=== PATIENT | male | born 1990 | race Caucasian/White ===

== ENCOUNTER 2019-08-20 22:12 | Emergency (ER) | payer SELFPAY ==
[2019-08-20 22:44] LABS: ABSOLUTE BASOPHILS # (AUTO) 0.1 10^3/uL (0.0-0.2); ABSOLUTE EOSINOPHILS # (AUTO) 0.4 10^3/uL (0.0-0.6); ABSOLUTE LYMPHOCYTES (AUTO) 3.1 10^3/uL (0.5-4.7); ABSOLUTE MONOCYTES (AUTO) 0.7 10^3/uL (0.1-1.4); ABSOLUTE NEUT (AUTO) 11.6 10^3/uL (1.7-8.2); BASOPHILS % (AUTO) 0.5 % (0-2); EOSINOPHILS % (AUTO) 2.5 % (0-6); HEMATOCRIT 53.7 % (37.9-51.0); HEMOGLOBIN 18.6 g/dL (13.5-17.0); LYMPHOCYTES % (AUTO) 19.2 % (13-45); MEAN CORPUSCULAR HEMOGLOBIN 30.3 pg (27.0-33.4); MEAN CORPUSCULAR HGB CONC 34.7 g/dL (32.0-36.0); MEAN CORPUSCULAR VOLUME 87 fl (80-97); MONOCYTES % (AUTO) 4.6 % (3-13); PLATELET COUNT 257 10^3/uL (150-450); RED BLOOD COUNT 6.15 10^6/uL (4.35-5.55); RED CELL DISTRIBUTION WIDTH 13.2 % (11.5-14.0); SEGMENTED NEUTROPHILS % (AUTO) 73.2 % (42-78); TOTAL CELLS COUNTED % (AUTO) 100 %; WHITE BLOOD COUNT 15.9 10^3/uL (4.0-10.5)
[2019-08-20 23:09] LABS: ALBUMIN 5.1 g/dL (3.5-5.0); ALKALINE PHOSPHATASE 79 U/L (38-126); ANION GAP 12 (5-19); ASPARTATE AMINO TRANSFERASE 36 U/L (17-59); BILIRUBIN,DIRECT 0.1 mg/dL (0.0-0.4); BILIRUBIN,TOTAL 0.8 mg/dL (0.2-1.3); BLOOD UREA NITROGEN 8 mg/dL (7-20); CALCIUM 10.2 mg/dL (8.4-10.2); CARBON DIOXIDE 29 mmol/L (22-30); CHLORIDE 99 mmol/L (98-107); CREATINE KINASE 131 U/L (55-170); GLUCOSE 129 mg/dL (75-110); POTASSIUM 3.7 mmol/L (3.6-5.0); TOTAL PROTEIN 8.2 g/dL (6.3-8.2)
--- NOTE | 2019-08-20 23:21 | RADIOLOGY REPORT (SQ) ---
EXAM DESCRIPTION: XR CHEST 2 VIEWS COMPLETED DATE/TME: 08/20/2019 00:00 CLINICAL HISTORY: 29 years, Male, chest pain COMPARISON: None. NUMBER OF VIEWS: 2 TECHNIQUE: 2 views of the chest LIMITATIONS: None. FINDINGS: The heart size is normal. Lungs are clear. No pneumothorax IMPRESSION: Negative chest copyright 2010 [employer]- All Rights Reserved
--- NOTE | 2019-08-20 23:27 | ER Document Report ---
ED General - General Chief Complaint: Chest Pain Stated Complaint: SHORTNESS OF BREATH/CHEST PAIN/NECK SWELLING Time Seen by Provider: 08/20/19 22:53 Mode of Arrival: Ambulatory Information source: Patient Notes: Patient is an otherwise healthy 29-year-old male presenting to the emergency department with chief complaint of sores on his groin and on his face and also chest pain with shortness of breath. Patient reports he has been suffering a lot from anxiety and depression lately due to issues with money and work. He denies any cardiac history. He states the chest pain has been intermittent over the last week and just feels like a fluttering and then he starts hyperventilating. Patient reports the different sores to his face and groin have also been intermittent over the last 10 years. TRAVEL OUTSIDE OF THE [place] IN LAST 30 DAYS: No - Related Data Allergies/Adverse Reactions: No Known Allergies Allergy (Unverified 08/20/19 22:19) Home Medications: none Past Medical History - General Information source: Patient - Social History Smoking Status: Current Every Day Smoker Chew tobacco use (# tins/day): No Frequency of alcohol use: Occasional Drug Abuse: None Family History: Reviewed & Not Pertinent Patient has suicidal ideation: No Patient has homicidal ideation: No - Medical History Medical History: Negative Surgical Hx: Negative - Immunizations Immunizations up to date: Yes Review of Systems - Review of Systems Constitutional: No symptoms reported EENT: No symptoms reported Cardiovascular: See HPI Respiratory: No symptoms reported Gastrointestinal: No symptoms reported Genitourinary: No symptoms reported Male Genitourinary: No symptoms reported Musculoskeletal: No symptoms reported Skin: See HPI Hematologic/Lymphatic: No symptoms reported Neurological/Psychological: No symptoms reported Physical Exam - Vital signs Vitals: Temp Pulse Resp BP Pulse Ox 99.3 F 85 16 153/99 H 99 08/20/19 22:22 08/20/19 22:22 08/20/19 22:22 08/20/19 22:22 08/20/19 22:22 - Notes Notes: PHYSICAL EXAMINATION: GENERAL: Well-appearing, well-nourished and in no acute distress. HEAD: Atraumatic, normocephalic. EYES: Pupils equal round and reactive to light, extraocular movements intact, sclera anicteric, conjunctiva are normal. ENT: Nares patent, oropharynx clear without exudates. Moist mucous membranes. NECK: Normal range of motion, supple without lymphadenopathy LUNGS: Breath sounds clear to auscultation bilaterally and equal. No wheezes rales or rhonchi. HEART: Regular rate and rhythm without murmurs ABDOMEN: Soft, nontender, nondistended abdomen. No guarding, no rebound. No masses appreciated. Musculoskeletal: Normal range of motion, no pitting or edema. No cyanosis. NEUROLOGICAL: Cranial nerves grossly intact. Normal speech, normal gait. Normal sensory, motor exams PSYCH: Normal mood, normal affect. SKIN: Scabbed over sores noted to patient's groin area and also along his chin. Course - Re-evaluation Re-evalutation: Chest X-Ray 08/20/19 00:00 IMPRESSION: Negative chest copyright 2011 [employer]- All Rights Reserved Laboratory 08/20/19 08/20/19 08/20/19 22:30 22:30 22:30 WBC 15.9 H RBC 6.15 H Hgb 18.6 H Hct 53.7 H MCV 87 MCH 30.3 MCHC 34.7 RDW 13.2 Plt Count 257 Lymph % (Auto) 19.2 Rabun % (Auto) 4.6 Eos % (Auto) 2.5 Baso % (Auto) 0.5 Absolute Neuts (auto) 11.6 H Absolute Lymphs (auto) 3.1 Absolute Monos (auto) 0.7 Absolute Eos (auto) 0.4 Absolute Basos (auto) 0.1 Seg Neutrophils % 73.2 Sodium 139.8 Potassium 3.7 Chloride 99 Carbon Dioxide 29 Anion Gap 12 BUN 8 Creatinine 0.91 Est GFR ( Amer) > 60 Est GFR (MDRD) Non-Af > 60 Glucose 129 H Calcium 10.2 Total Bilirubin 0.8 Direct Bilirubin 0.1 Neonat Total Bilirubin Not Reportable Neonat Direct Bilirubin Not Reportable Neonat Indirect Bili Not Reportable AST 36 ALT 25 Alkaline Phosphatase 79 Creatine Kinase 131 CK-MB (CK-2) 1.65 Troponin I < 0.012 Total Protein 8.2 Albumin 5.1 H EKG shows a sinus rhythm, no ST segment elevations or depressions to suggest ischemia and a normal axis. His chest x-ray was unremarkable. His lab work-up today was unremarkable other than a nonspecific elevated white blood count however patient has not been sick lately. Patient symptoms are most consistent with acute anxiety. Patient requesting to be started on medication for this. Will give patient prescription for buspirone and have patient follow-up with outpatient resources which were also provided. - Vital Signs Vital signs: Temp Pulse Resp BP Pulse Ox 98.5 F 85 18 124/89 H 96 08/21/19 00:28 08/20/19 22:22 08/21/19 00:27 08/21/19 00:27 08/21/19 00:27 - Laboratory Result Diagrams: 08/20/19 22:30 08/20/19 22:30 Laboratory results interpreted by me: 08/20/19 08/20/19 22:30 22:30 WBC 15.9 H RBC 6.15 H Hgb 18.6 H Hct 53.7 H Absolute Neuts (auto) 11.6 H Glucose 129 H Albumin 5.1 H Discharge - Discharge Clinical Impression: Skin eruption, Anxiety Condition: Stable Disposition: HOME, SELF-CARE Additional Instructions: Please take the antibiotics as prescribed. Please try to have the antibiotics filled at the [facility] they may have this available to you at 0 cost. Use the antibiotic ointment to your face twice daily. Do not pick at your face. Start taking the antidepressant as discussed. Please follow-up with the resources that I have given you. Return to the emergency department for any new or worsening symptoms. Prescriptions: Sulfamethoxazole/Trimethoprim [Bactrim Ds Tablet] 1 each PO BID #28 tablet Buspirone HCl [Buspar 10 mg Tablet] 10 mg PO DAILY #30 tablet
[2019-08-20 23:46] LABS: CREATINE KINASE MB 1.65 ng/mL (<4.55); TROPONIN I < 0.012 ng/mL
[2019-08-21 00:28] VITALS: BP 124/89
[2019-08-21] MEDS ORDERED: MUPIROCIN 2% OINTMENT 22 GM TP ONE (00:28)
--- NOTE | 2019-08-21 00:46 | EKG REPORT ---
SEVERITY:- ABNORMAL ECG - SINUS RHYTHM NONSPECIFIC INTRAVENTRICULAR CONDUCTION DELAY : Confirmed by: Sonal Aaron MD 21-Aug-2019 00:46:10
== END 2019-08-21 00:46 | disposition home or self-care (01) ==
LOC: ER 22:12
DX: R21 Rash and other nonspecific skin eruption (principal); F41.9 Anxiety disorder, unspecified; R07.9 Chest pain, unspecified; R06.02 Shortness of breath; R22.1 Localized swelling, mass and lump, neck; F32.9 Major depressive disorder, single episode, unspecified; F17.200 Nicotine dependence, unspecified, uncomplicated
CPT/HCPCS: 93005; 99285; 36415; 82553; 82550; 85025; 80053; 84484; 71046; 93010; J3490

== ENCOUNTER 2019-10-15 16:41 | Emergency (ER) | payer SELFPAY ==
[2019-10-15] MEDS ORDERED: NORMAL SALINE 1000 ML 1,000 ML IV ONE ×2 (17:56→17:58)
[2019-10-15] MEDS ORDERED: ONDANSETRON HCL INJ/PF 4 MG/2 ML SDV IV ONE (17:58)
--- NOTE | 2019-10-15 18:18 | ER Document Report ---
ED Medical Screen (RME) - General Chief Complaint: Flu Symptoms Stated Complaint: SORE THROAT/FEVER/BODY ACHES Time Seen by Provider: 10/15/19 17:50 Mode of Arrival: Ambulatory Information source: Patient Notes: Patient presents to the ED with complaint of flu-like symptoms that he states began one week [employer]. Patient reports feeling febrile at home but is unable to check temperature. Patient reports generalized body aches, fatigue, diarhhea, nausea without vomitting, headache. Patient is able to tolerate po food/fluids, but has decreased appetite. Patient reports feeling sob at this time, 96% on RA at triage. Even and unlabored respirations, nad noted. Patient reports cough that is non productive and reports pain that has begun with coughing and deep breaths. Patient tearful in triage. Patient reports reduced urine output. Patient is AOx4, respirations e/u, able to speak in clear and complete sentences, nad noted. Ambulatory with even and steady gait. Denies signifigant medical/surgical hx Otherwise healthy 29-year-old male presenting with flulike symptoms that he reports began 1 week ago. He reports feeling cold chills at home, generalized body aches, fatigue, nausea without vomiting, generalized headache and he states persistent diarrhea [id number]. He states he has been trying to drink liquids but he is unable to keep anything in him. He states he feels very short of breath and has no energy. Exam: Patient afebrile in triage but tachycardic. Lung sounds clear and equal bilaterally. I have greeted and performed a rapid initial assessment of this patient. A comprehensive ED assessment and evaluation of the patient, analysis of test results and completion of the medical decision making process will be conducted by additional ED providers. I have specifically instructed the patient or family members with the patient to immediately return to any nursing staff should anything change in the patient's condition or with their chief complaint. TRAVEL OUTSIDE OF THE [place] IN LAST 30 DAYS: No - Related Data Allergies/Adverse Reactions: No Known Allergies Allergy (Unverified 08/20/19 22:19) Past Medical History - Immunizations Immunizations up to date: Yes Physical Exam - Vital signs Vitals: Temp Pulse Resp BP Pulse Ox 99.1 F 119 H 20 126/78 H 96 10/15/19 17:28 10/15/19 17:28 10/15/19 17:28 10/15/19 17:28 10/15/19 17:28 Course - Vital Signs Vital signs: Temp Pulse Resp BP Pulse Ox 99.1 F 119 H 20 126/78 H 96 10/15/19 17:28 10/15/19 17:28 10/15/19 17:28 10/15/19 17:28 10/15/19 17:28
[2019-10-15 18:49] LABS: ABSOLUTE LYMPHOCYTES (AUTO) 1.1 10^3/uL (0.5-4.7); ABSOLUTE MONOCYTES (AUTO) 0.9 10^3/uL (0.1-1.4); ABSOLUTE NEUT (AUTO) 8.7 10^3/uL (1.7-8.2); BASOPHILS % (AUTO) 0.4 % (0-2); HEMATOCRIT 46.7 % (37.9-51.0); HEMOGLOBIN 16.6 g/dL (13.5-17.0); LYMPHOCYTES % (AUTO) 10.5 % (13-45); MEAN CORPUSCULAR HEMOGLOBIN 30.3 pg (27.0-33.4); MEAN CORPUSCULAR HGB CONC 35.5 g/dL (32.0-36.0); MEAN CORPUSCULAR VOLUME 85 fl (80-97); MONOCYTES % (AUTO) 8.1 % (3-13); PLATELET COUNT 129 10^3/uL (150-450); RED BLOOD COUNT 5.47 10^6/uL (4.35-5.55); RED CELL DISTRIBUTION WIDTH 12.7 % (11.5-14.0); TOTAL CELLS COUNTED % (AUTO) 100 %; WHITE BLOOD COUNT 10.8 10^3/uL (4.0-10.5)
[2019-10-15 19:00] LABS: ALBUMIN 4.4 g/dL (3.5-5.0); ALKALINE PHOSPHATASE 66 U/L (38-126); ANION GAP 10 (5-19); ASPARTATE AMINO TRANSFERASE 32 U/L (17-59); BILIRUBIN,DIRECT 0.2 mg/dL (0.0-0.4); BILIRUBIN,TOTAL 0.5 mg/dL (0.2-1.3); BLOOD UREA NITROGEN 8 mg/dL (7-20); CALCIUM 9.1 mg/dL (8.4-10.2); CARBON DIOXIDE 24 mmol/L (22-30); CHLORIDE 102 mmol/L (98-107); GLUCOSE 85 mg/dL (75-110); TOTAL PROTEIN 7.3 g/dL (6.3-8.2)
[2019-10-15 19:18] LABS: A TYPE INFLUENZA AG NEGATIVE (NEGATIVE); B INFLUENZA AG NEGATIVE (NEGATIVE)
[2019-10-15] MEDS ORDERED: KETOROLAC TROMETHAMINE INJ/PF 30 MG/1 ML SDV IV ONE (19:41)
[2019-10-15] MEDS ORDERED: BENZONATATE 100 MG CAPSULE PO ONE (19:41)
--- NOTE | 2019-10-15 19:42 | EKG REPORT ---
SEVERITY:- NORMAL ECG - SINUS RHYTHM : Confirmed by: Jem Lamb 15-Oct-2019 19:41:59
--- NOTE | 2019-10-15 19:47 | ER Document Report ---
ED General - General Chief Complaint: Flu Symptoms Stated Complaint: SORE THROAT/FEVER/BODY ACHES Time Seen by Provider: 10/15/19 17:50 Mode of Arrival: Ambulatory Information source: Patient TRAVEL OUTSIDE OF THE [place] IN LAST 30 DAYS: No - HPI Onset: Last week Onset/Duration: Gradual Severity: Moderate Pain Level: 3 Associated symptoms: Body/muscle aches, Chest pain, Chills, Productive cough, Diarrhea, Headache, Nausea, Weakness Exacerbated by: Denies Relieved by: Other - Tylenol and Motrin Similar symptoms previously: No Recently seen / treated by doctor: No Notes: 29 year old male with no known PMH here for 1 week of flu like symptoms: chills, sweats, nausea, sore throat, headache, cough, body aches. The patient says he has been around 2 people who tested positive for the Flu recently. The patient says he has been coughing so hard his chest now hurts a fair amount. The patient was given Fluids and Zofran prior to me seeing the patient and he said he felt somewhat better. - Related Data Allergies/Adverse Reactions: No Known Allergies Allergy (Unverified 08/20/19 22:19) Past Medical History - General Information source: Patient - Social History Smoking Status: Current Every Day Smoker Frequency of alcohol use: Occasional Drug Abuse: None Lives with: Alone Family History: Reviewed & Not Pertinent Patient has suicidal ideation: No Patient has homicidal ideation: No - Past Medical History Cardiac Medical History: Reports: None Pulmonary Medical History: Reports: None EENT Medical History: Reports: None Neurological Medical History: Reports: None Endocrine Medical History: Reports: None Renal/ Medical History: Reports: None Malignancy Medical History: Reports None GI Medical History: Reports: None Musculoskeletal Medical History: Reports None Skin Medical History: Reports None Psychiatric Medical History: Reports: None Traumatic Medical History: Reports: None Infectious Medical History: Reports: None Past Surgical History: Reports: None - Immunizations Immunizations up to date: Yes Review of Systems - Review of Systems Constitutional: Chills, Diaphoresis, Weakness EENT: Throat pain Cardiovascular: Chest pain Respiratory: Cough, Short of breath, Wheezing Gastrointestinal: Diarrhea, Nausea, Poor appetite Genitourinary: No symptoms reported Male Genitourinary: No symptoms reported Musculoskeletal: Muscle pain Skin: No symptoms reported Hematologic/Lymphatic: No symptoms reported Neurological/Psychological: Headaches Physical Exam - Vital signs Vitals: Temp Pulse Resp BP Pulse Ox 99.1 F 119 H 20 126/78 H 96 10/15/19 17:28 10/15/19 17:28 10/15/19 17:28 10/15/19 17:28 10/15/19 17:28 Course - Re-evaluation Re-evalutation: 10/15/19 20:59 The patient seems to have a right sided pneumonia on Xray on my read. Will treat patient with Levaquin and have patient follow up with a PCP to ensure resolution of symptoms nad Xray findings. Will also prescribe Albuterol, Naproxen, and Zofran for symptom relief. Patient felt better in the ER after treatment with fluids, Toradol, Zofran, Tessalon Perles. - Vital Signs Vital signs: Temp Pulse Resp BP Pulse Ox 99.1 F 119 H 20 126/78 H 96 10/15/19 17:28 10/15/19 17:28 10/15/19 17:28 10/15/19 17:28 10/15/19 17:28 - Laboratory Result Diagrams: 10/15/19 18:28 10/15/19 18:28 Laboratory results interpreted by me: 10/15/19 10/15/19 18:28 18:28 WBC 10.8 H Plt Count 129 L Lymph % (Auto) 10.5 L Absolute Neuts (auto) 8.7 H Seg Neutrophils % 81.0 H Sodium 136.2 L Discharge - Discharge Clinical Impression: Pneumonia Qualifiers: Pneumonia type: due to unspecified organism Laterality: right Lung location: unspecified part of lung Qualified Code(s): J18.9 - Pneumonia, unspecified organism Condition: Stable Disposition: HOME, SELF-CARE Additional Instructions: Take Levaquin (antibiotic) as prescribed. Use Zofran as needed for nausea. Use albuterol as needed for wheezing and shortness of breath. Use Naproxen for chest pain. Drink plenty of fluids in the days to come. Follow up with a primary care doctor to ensure resolution of your symptoms and of you abnormal chest xray. Prescriptions: Levofloxacin [Levaquin 750 mg Tablet] 750 mg PO DAILY #5 tablet Naproxen 500 mg PO BID PRN #14 tablet PRN Reason: Albuterol Sulfate [Proair HFA Inhalation Aerosol 8.5 gm MDI] 2 puff IH Q4H PRN #1 mdi PRN Reason:
[2019-10-15] MEDS ORDERED: IPRATROPIUM/ALBUTEROL 0.5-2.5 MG/3 ML AMPUL NEB ONE (19:52)
[2019-10-15] MEDS ORDERED: LEVOFLOXACIN 750 MG TABLET PO ONE (21:04)
--- NOTE | 2019-10-15 21:05 | RADIOLOGY REPORT (SQ) ---
XR CHEST 2 VIEWS CLINICAL STATEMENT: eval for pneumonia. 1 week of cough COMPARISON: 08/20/2019 FINDINGS: Heart is not enlarged. Interval development of right lower lobe airspace disease consistent with pneumonia. No pneumothorax. No pleural effusions. IMPRESSION: Patchy right lower lobe pneumonia.
[2019-10-15] MEDS ORDERED: HYDROCODONE/ACETAMINOPHEN 5-325 MG (6 TAB/ER DISP) PO PRN (21:16)
[2019-10-15] MEDS ORDERED: ONDANSETRON ODT 4 MG TAB (6 TAB/ER DISP) PO PRN (21:16)
[2019-10-15 21:30] VITALS: BP 117/60
== END 2019-10-15 21:33 | disposition home or self-care (01) ==
LOC: ER 16:41
DX: J18.9 Pneumonia, unspecified organism (principal); R53.1 Weakness; R61 Generalized hyperhidrosis; R06.2 Wheezing; R11.0 Nausea; R19.7 Diarrhea, unspecified; F17.200 Nicotine dependence, unspecified, uncomplicated
CPT/HCPCS: 93005; 94640; 99284; 96361; 96374; 96375; 36415; 87070; 87880; 85025; 87077; 80053; 87804; 71046; 93010; J1885; J2405; J7030; J7620

== ENCOUNTER 2019-10-16 15:57 | Emergency (ER) | payer SELFPAY ==
[2019-10-16 16:17] VITALS: BP 112/72
== END 2019-10-16 16:30 | disposition left against medical advice (07) ==
LOC: ER 15:57
DX: Z53.21 Procedure and treatment not carried out due to patient leaving prior to being seen by health care provider (principal); R11.2 Nausea with vomiting, unspecified

== ENCOUNTER 2019-10-16 22:38 | Inpatient (IN) | payer SELFPAY ==
[2019-10-16] MEDS ORDERED: NORMAL SALINE 1000 ML 1,000 ML IV ONE (23:17)
[2019-10-16] MEDS ORDERED: ONDANSETRON HCL INJ/PF 4 MG/2 ML SDV IV ONE (23:17)
--- NOTE | 2019-10-16 23:19 | ER Document Report ---
ED Medical Screen (RME) - General Chief Complaint: Shortness Of Breath Stated Complaint: TROUBLE BREATHING Time Seen by Provider: 10/16/19 23:16 Mode of Arrival: Ambulatory Information source: Patient Notes: Patient presents complaining of right-sided rib pain with nausea and vomiting. Patient states that he was diagnosed with pneumonia recently and has been unable to keep his antibiotics down due to vomiting. Patient reports subjective fever. I have greeted and performed a rapid initial assessment of this patient. A comprehensive ED assessment and evaluation of the patient, analysis of test results and completion of the medical decision making process will be conducted by additional ED providers. TRAVEL OUTSIDE OF THE [place] IN LAST 30 DAYS: No - Related Data Allergies/Adverse Reactions: No Known Allergies Allergy (Unverified 08/20/19 22:19) Past Medical History - Immunizations Immunizations up to date: Yes Physical Exam - Vital signs Vitals: Temp Pulse Resp BP Pulse Ox 97.8 F 87 20 101/63 97 10/16/19 22:50 10/16/19 22:50 10/16/19 22:50 10/16/19 22:50 10/16/19 22:50 - Respiratory Respiratory status: No respiratory distress Chest status: Pain with cough, Pain with deep breathing Breath sounds: Nonproductive cough Course - Vital Signs Vital signs: Temp Pulse Resp BP Pulse Ox 97.8 F 87 20 101/63 97 10/16/19 22:50 10/16/19 22:50 10/16/19 22:50 10/16/19 22:50 10/16/19 22:50
[2019-10-16 23:37] LABS: ABSOLUTE LYMPHOCYTES (AUTO) 1.3 10^3/uL (0.5-4.7); ABSOLUTE MONOCYTES (AUTO) 0.9 10^3/uL (0.1-1.4); ABSOLUTE NEUT (AUTO) 12.8 10^3/uL (1.7-8.2); BASOPHILS % (AUTO) 0.2 % (0-2); HEMATOCRIT 44.9 % (37.9-51.0); HEMOGLOBIN 15.5 g/dL (13.5-17.0); LYMPHOCYTES % (AUTO) 8.8 % (13-45); MEAN CORPUSCULAR HEMOGLOBIN 29.8 pg (27.0-33.4); MEAN CORPUSCULAR HGB CONC 34.6 g/dL (32.0-36.0); MEAN CORPUSCULAR VOLUME 86 fl (80-97); MONOCYTES % (AUTO) 5.9 % (3-13); PLATELET COUNT 117 10^3/uL (150-450); RED BLOOD COUNT 5.21 10^6/uL (4.35-5.55); RED CELL DISTRIBUTION WIDTH 12.8 % (11.5-14.0); SEGMENTED NEUTROPHILS % (AUTO) 85.1 % (42-78); TOTAL CELLS COUNTED % (AUTO) 100 %
[2019-10-16 23:54] LABS: ALBUMIN 4.1 g/dL (3.5-5.0); ALKALINE PHOSPHATASE 70 U/L (38-126); ANION GAP 9 (5-19); ASPARTATE AMINO TRANSFERASE 33 U/L (17-59); BILIRUBIN,DIRECT 0.3 mg/dL (0.0-0.4); BILIRUBIN,TOTAL 0.8 mg/dL (0.2-1.3); BLOOD UREA NITROGEN 7 mg/dL (7-20); CALCIUM 9.4 mg/dL (8.4-10.2); CARBON DIOXIDE 30 mmol/L (22-30); CHLORIDE 99 mmol/L (98-107); GLUCOSE 93 mg/dL (75-110); POTASSIUM 4.3 mmol/L (3.6-5.0); TOTAL PROTEIN 7.2 g/dL (6.3-8.2)
--- NOTE | 2019-10-16 23:59 | RADIOLOGY REPORT (SQ) ---
EXAM DESCRIPTION: XR CHEST 2 VIEWS COMPLETED DATE/TME: 10/16/2019 23:17 CLINICAL HISTORY: 29 years, Male, cough,hx pneumonia, increased pain COMPARISON: Prior study from 10/15/2019 NUMBER OF VIEWS: Two TECHNIQUE: Frontal and lateral radiograph the chest were acquired LIMITATIONS: None. FINDINGS: Cardiac and mediastinal contours are stable. Confluent opacity is noted about the right lung base, increased from the previous examination. An associated small right pleural effusion is now noted. Left lung is overall clear. No pneumothorax. IMPRESSION: Increasing right basilar airspace disease with new small right pleural effusion, suspicious for worsening pneumonia. copyright 2010 [employer]- All Rights Reserved
--- NOTE | 2019-10-17 02:46 | ER Document Report ---
ED Respiratory Problem - General Chief Complaint: Nausea/Vomiting Stated Complaint: TROUBLE BREATHING Time Seen by Provider: 10/16/19 23:16 Mode of Arrival: Ambulatory Information source: Patient Notes: 29-year-old male presented to ED for complaint of right-sided rib pain with nausea and vomiting. He states he was diagnosed with pneumonia and was started on antibiotics but he threw up all of the antibiotics. He states he had a fever at home but has not had a fever while in the emergency room. He states he has been smoking a pack a day but has not been able to smoke for the last 4 days. He states he rarely drinks and used to smoke pot daily but has not had any in 4 days. He was discharged home with prescription for Levaquin and states he has not kept any of it down. Before I examined him he did have blood work and a chest x-ray which showed a worsening pneumonia. I did call the hospitalist Dr. Avila who has admitted the patient. He stated he would treat the patient with antibiotics and I did not need to order new antibiotics. TRAVEL OUTSIDE OF THE [place] IN LAST 30 DAYS: No - HPI Patient complains to provider of: Cough, Short of breath Onset: Other - 4 days Duration: Worse/persistent Initiating Event: Other - Recent diagnosis of pneumonia Quality of pain: Burning, Sharp Severity: Moderate Pain Level: 3 Context: Smoker Short of Breath: Mild Cough: Nonproductive Sputum amount: None At home treatment: Bronchodilators Associated symptoms: Chest pain/discomfort, Chills, Congestion, Cough, Other - Recently diagnosed with pneumonia but has been throwing up his antibiotics Similar symptoms previously: Yes Recently seen / treated by doctor: Yes - Related Data Allergies/Adverse Reactions: No Known Allergies Allergy (Verified 10/16/19 23:25) Home Medications: LEVAQUIN, NAPROXEN, ALBUTEROL Past Medical History - General Information source: Patient - Social History Smoking Status: Current Every Day Smoker Cigarette use (# per day): Yes - Pack per day Smoking Education Provided: Yes - 4 minutes Frequency of alcohol use: Heavy Drug Abuse: Marijuana Lives with: Family Family History: Reviewed & Not Pertinent Patient has suicidal ideation: No Patient has homicidal ideation: No - Medical History Medical History: Negative - Past Medical History Cardiac Medical History: Reports: None Pulmonary Medical History: Reports: Hx Pneumonia EENT Medical History: Reports: None Neurological Medical History: Reports: None Endocrine Medical History: Reports: None Renal/ Medical History: Reports: None Malignancy Medical History: Reports None GI Medical History: Reports: None Musculoskeletal Medical History: Reports None Skin Medical History: Reports None Psychiatric Medical History: Reports: None Traumatic Medical History: Reports: None Infectious Medical History: Reports: None Surgical Hx: Negative Past Surgical History: Reports: None - Immunizations Immunizations up to date: Yes Review of Systems - Review of Systems Constitutional: No symptoms reported EENT: No symptoms reported Cardiovascular: No symptoms reported Respiratory: Cough, Short of breath Gastrointestinal: No symptoms reported Genitourinary: No symptoms reported Male Genitourinary: No symptoms reported Musculoskeletal: No symptoms reported Skin: No symptoms reported Hematologic/Lymphatic: No symptoms reported Neurological/Psychological: No symptoms reported -: Yes All other systems reviewed and negative Physical Exam - Vital signs Vitals: Temp Pulse Resp BP Pulse Ox 97.8 F 87 20 101/63 97 10/16/19 22:50 10/16/19 22:50 10/16/19 22:50 10/16/19 22:50 10/16/19 22:50 Interpretation: Normal - General General appearance: Appears well, Alert - HEENT Head: Normocephalic, Atraumatic Eyes: Normal Pupils: PERRL - Respiratory Respiratory status: No respiratory distress Chest status: Nontender Breath sounds: Nonproductive cough, Rales Chest palpation: Normal - Cardiovascular Rhythm: Regular Heart sounds: Normal auscultation Murmur: No - Abdominal Inspection: Normal Distension: No distension Bowel sounds: Normal Tenderness: Nontender Organomegaly: No organomegaly - Back Back: Normal, Nontender - Extremities General upper extremity: Normal inspection, Nontender, Normal color, Normal ROM, Normal temperature General lower extremity: Normal inspection, Nontender, Normal color, Normal ROM, Normal temperature, Normal weight bearing. No: Asha's sign - Neurological Neuro grossly intact: Yes Cognition: Normal Orientation: AAOx4 [place] Coma Scale Eye Opening: Spontaneous [place] Coma Scale Verbal: Oriented [place] Coma Scale Motor: Obeys Commands [place] Coma Scale Total: 15 Speech: Normal Motor strength normal: LUE, RUE, LLE, RLE Sensory: Normal - Psychological Associated symptoms: Normal affect, Normal mood - Skin Skin Temperature: Warm Skin Moisture: Dry Skin Color: Normal Course - Vital Signs Vital signs: Temp Pulse Resp BP Pulse Ox 97.8 F 87 15 119/77 98 10/16/19 22:50 10/16/19 22:50 10/17/19 02:00 10/17/19 01:01 10/17/19 02:00 - Laboratory Result Diagrams: 10/16/19 23:20 10/16/19 23:20 Laboratory results interpreted by me: 10/16/19 10/16/19 23:20 23:20 WBC 15.0 H Plt Count 117 L Lymph % (Auto) 8.8 L Absolute Neuts (auto) 12.8 H Seg Neutrophils % 85.1 H Lipase 15.6 L - Diagnostic Test Radiology reviewed: Image reviewed, Reports reviewed Discharge - Discharge Clinical Impression: Worsening pneumonia Disposition: ADMITTED INPATIENT Admitting Provider: Austin (Hospitalist) Unit Admitted: Medical Floor
[2019-10-17] MEDS ORDERED: MAGNESIUM HYDROXIDE SUSP 30 ML UDCUP PO PRN (02:48)
[2019-10-17] MEDS ORDERED: NICOTINE 21 MG/24 HR PATCH.TD24 TD PRN (02:48)
[2019-10-17] MEDS ORDERED: MAG HYDROX/AL HYDROX/SIMETH SUSP 30 ML UDCUP PO PRN (02:48)
[2019-10-17] MEDS ORDERED: MORPHINE SULFATE 10 MG/ML INJ IV PRN ×4 (02:48→14:51)
[2019-10-17] MEDS ORDERED: PROMETHAZINE HCL INJ 25 MG/1 ML VIAL IV PRN (02:48)
[2019-10-17] MEDS ORDERED: GUAIFENESIN SYRP 200 MG/10 ML UDC PO PRN (02:52)
[2019-10-17] MEDS: LORAZEPAM INJ 2 MG/1 ML VIAL IV PRN ×2 (03:28→06:31)
--- NOTE | 2019-10-17 04:39 | PDOC H&P ---
History of Present Illness Admission Date/PCP: 10/17/2019 02:55 No local PCP Patient complains of: Dyspnea History of Present Illness: MANDI HERNANDEZ is a 29 year old male who presented to the emergency room with a 7- day history of dyspnea. Patient admits dyspnea worsened by exertion accompanied by a nonproductive cough, subjective fever and chills and associated with severe sharp right pleuritic chest pain with all symptoms gradually worsening over the last 7 days. He was seen on 10/15/2019 and 10/16/2019 in the emergency room and treated for pneumonia with oral Levaquin, albuterol via hand-held nebulizer and oral naproxen for pain. He went home and took his medications and promptly vom ited. He subsequently discontinued use of the medications and his symptoms have further worsened. His dyspnea is severe to the point where he cannot smoke cigarettes or marijuana due to worsening of his dyspnea. He denies other associated or accompanying signs and symptoms. He denies prior similar episodes. He has not identified any additional aggravating or ameliorating factors for his dyspnea. In the emergency room he was found to have a worsened appearance of his pneumonia via chest x-ray and was also noted to have a 15,000 white count. Patient was afebrile and the remainder of his laboratory evaluation was unremarkable. Due to his failed outpatient therapy he was admitted to the hospital for further evaluation and treatment. Past Medical History Cardiac Medical History: Denies: Coronary Artery Disease, Hyperlipidema, Hypertension Pulmonary Medical History: Denies: Asthma, Chronic Obstructive Pulmonary Disease (COPD), Pneumonia EENT Medical History: Denies: Cataracts, Nose - Nasal septal deviation Neurological Medical History: Denies: Multiple Sclerosis, Seizures Endocrine Medical History: Denies: Diabetes Mellitus Type 1, Hyperthyroidism, Hypothyroidism, Obesity Renal/ Medical History: Denies: Chronic Kidney Disease, Nephrolithiasis Malignancy Medical History: Reports: None GI Medical History: Denies: Cirrhosis, Hepatitis, Peptic Ulcer Disease Musculoskeltal Medical History: Denies: Arthritis, Gout Skin Medical History: Denies: Eczema, Psoriasis Psychiatric Medical History: Reports: Substance Abuse, Tobacco Dependency Denies: Alcohol Dependency Traumatic Medical History: Reports: None Hematology: Denies: Anemia, Bleeding Tendencies Infectious Medical History: Reports: None Past Surgical History Past Surgical History: Reports: Orthopedic Surgery - Finger repairs on left hand post injury Social History Information Source: Patient Lives with: Alone Smoking Status: Current Every Day Smoker Cigarettes Packs Per Day: 1.5 Electronic Cigarette use?: No Frequency of Alcohol Use: Occasional - 1 beer per week Hx Recreational Drug Use: Yes - Frequent Drugs: Marijuana Hx Prescription Drug Abuse: No - Advance Directive Resuscitation Status: Full Code Surrogate healthcare decision maker:: Penny Balwinder Family History Family History: DM, Thyroid Disfunction. denies: CAD, Hypertension, Malignancy Parental Family History Reviewed: Yes Children Family History Reviewed: No Sibling(s) Family History Reviewed.: Yes Medication/Allergy Home Medications: Buspirone HCl [Buspar 10 mg Tablet] 10 mg PO DAILY #30 tablet 08/21/19 Sulfamethoxazole/Trimethoprim [Bactrim Ds Tablet] 1 each PO BID #28 tablet 08/21/19 Albuterol Sulfate [Proair HFA Inhalation Aerosol 8.5 gm MDI] 2 puff IH Q4H PRN #1 mdi 10/15/19 Levofloxacin [Levaquin 750 mg Tablet] 750 mg PO DAILY #5 tablet 10/15/19 Naproxen 500 mg PO BID PRN #14 tablet 10/15/19 Allergies/Adverse Reactions: No Known Allergies Allergy (Verified 10/16/19 23:25) Review of Systems Constitutional: PRESENT: as per HPI, chills - Subjective, fever(s) - Subjective Eyes: ABSENT: visual disturbances, other - Eye pain Ears: ABSENT: hearing changes, other - Ear pain Nose, Mouth, and Throat: ABSENT: headache(s), mouth pain, sore throat Cardiovascular: PRESENT: as per HPI, chest pain - Right sided pleuritic pain, dyspnea on exertion Respiratory: PRESENT: cough, dyspnea. ABSENT: sputum Gastrointestinal: ABSENT: abdominal pain, constipation, diarrhea, nausea, vomiting Genitourinary: ABSENT: dysuria, hematuria Musculoskeletal: ABSENT: back pain, joint swelling, muscle weakness Integumentary: ABSENT: pruritus, rash Neurological: ABSENT: confusion, convulsions, focal weakness, memory loss, syncope Psychiatric: ABSENT: anxiety, depression Endocrine: ABSENT: cold intolerance, heat intolerance Hematologic/Lymphatic: ABSENT: easy bleeding, easy bruising Allergic/Immunologic: ABSENT: seasonal rhinorrhea Physical Exam Vital Signs: Temp Pulse Resp BP Pulse Ox 97.8 F 87 15 119/77 98 10/16/19 22:50 10/16/19 22:50 10/17/19 02:00 10/17/19 01:01 10/17/19 02:00 Intake & Output 10/15/19 10/16/19 10/17/19 23:59 23:59 23:59 Intake Total 1000 Balance 1000 Weight 67.1 kg General appearance: PRESENT: no acute distress, cooperative Head exam: PRESENT: atraumatic, normocephalic Eye exam: PRESENT: conjunctiva pink. ABSENT: conjunctival injection, scleral icterus Ear exam: PRESENT: normal external ear exam. ABSENT: bleeding, drainage Mouth exam: PRESENT: dry mucosa, neck supple Neck exam: ABSENT: thyromegaly, tracheal deviation Respiratory exam: PRESENT: rales - A few coarse rales are noted in the right base, symmetrical, unlabored. ABSENT: prolonged expiratory phas, rhonchi, wheezes Cardiovascular exam: PRESENT: RRR. ABSENT: clicks, gallop, rubs Pulses: PRESENT: normal radial pulses, normal dorsalis pedis pul Vascular exam: PRESENT: normal capillary refill. ABSENT: pallor GI/Abdominal exam: PRESENT: normal bowel sounds, soft Rectal exam: PRESENT: deferred Extremities exam: ABSENT: joint swelling, pedal edema Musculoskeletal exam: ABSENT: deformity, dislocation Neurological exam: PRESENT: alert, oriented to person, oriented to place, oriented to time, oriented to situation, CN II-XII grossly intact. ABSENT: motor sensory deficit Psychiatric exam: PRESENT: appropriate affect, normal mood Skin exam: PRESENT: dry, intact, warm. ABSENT: jaundice, rash, urticaria Results Laboratory Results: 10/16/19 23:20 10/16/19 23:20 10/16/19 10/16/19 23:20 23:20 WBC 15.0 H RBC 5.21 Hgb 15.5 Hct 44.9 MCV 86 MCH 29.8 MCHC 34.6 RDW 12.8 Plt Count 117 L Seg Neutrophils % 85.1 H Sodium 137.9 Potassium 4.3 Chloride 99 Carbon Dioxide 30 Anion Gap 9 BUN 7 Creatinine 0.74 Est GFR ( Amer) > 60 Glucose 93 Calcium 9.4 Total Bilirubin 0.8 AST 33 Alkaline Phosphatase 70 Total Protein 7.2 Albumin 4.1 Lipase 15.6 L Impressions: Chest X-Ray 10/16/19 23:17 IMPRESSION: Increasing right basilar airspace disease with new small right pleural effusion, suspicious for worsening pneumonia. copyright 2011 [employer]- All Rights Reserved Assessment and Plan - Diagnosis (1) Community acquired pneumonia of right lung Qualifiers: Lung location: unspecified part of lung Qualified Code(s): J18.9 - Pneumonia, unspecified organism Is this a current diagnosis for this admission?: Yes (2) Pleuritic chest pain Is this a current diagnosis for this admission?: Yes (3) Leukocytosis Qualifiers: Leukocytosis type: unspecified Qualified Code(s): D72.829 - Elevated white blood cell count, unspecified Is this a current diagnosis for this admission?: Yes (4) Cannabis abuse, continuous use Is this a current diagnosis for this admission?: Yes (5) Tobacco use disorder, severe, dependence Is this a current diagnosis for this admission?: Yes - Plan Summary Summary: Patient is admitted to the medical floor where he will receive routine supporti ve and symptomatic cares. He will be treated with IV Levaquin initially using 750 mg daily. He will be provided an aggressive pulmonary toilet with nebulized Xopenex, Atrovent and Mucomyst. Smoking cessation is advised and counseled briefly at the bedside. A nicotine replacement patch is available for the patient's use, if desired. Patient will use morphine sulfate 2 to 4 mg IV every 2 hours on as-needed basis for control of his pleuritic chest pain. Patient will have available Ativan 1 mg IV every 4 hours as needed anxiety or restlessness. Patient will be given supplemental oxygen if required for maintenance of adequate O2 saturation. - Time Time Spent with patient: 15-24 minutes Smoking Cessation Education: 3 to 10 minutes Medications reviewed and adjusted accordingly: Yes Anticipated discharge: Home - Inpatient Certification Based on my medical assessment, after consideration of the patient's comorbidities, presenting symptoms, or acuity I expect that the services needed warrant INPATIENT care.: Yes I certify that my determination is in accordance with my understanding of Medicare's requirements for reasonable and necessary INPATIENT services [42 CFR 412.3e].: Yes Medical Necessity: Failure to Improve With Outpatient Therapy, Need for Nebulizer Therapy and Monitoring of Response, Need for Pain Control, Need for IV Antibiotics, Risk of Complication if Not Cared For in Hospital
[2019-10-17] MEDS: LEVALBUTEROL HCL NEB 0.63 MG/3 ML AMPUL NEB PRN ×2 (04:56→20:56)
[2019-10-17] MEDS ORDERED: LEVOFLOXACIN 750 MG/D5W RTU 750 MG/150 ML RTUPB IV SCH (06:00)
[2019-10-17] MEDS: HEPARIN SOD (PORCINE) 5,000 UNIT/ML 1 ML VIAL SUBCUT SCH ×3 (06:20→21:54)
[2019-10-17] MEDS: ACETYLCYSTEINE 20% SOLN 800 MG/4 ML VIAL.NEB NEB SCH ×2 (08:58→20:56)
[2019-10-17] MEDS: IPRATROPIUM BROMIDE 0.02% NEB 0.5 MG/2.5 ML AMPUL NEB SCH ×3 (08:58→23:57)
[2019-10-17] MEDS: LEVALBUTEROL HCL NEB 1.25 MG/3 ML AMPUL NEB SCH ×3 (08:58→23:57)
[2019-10-17] MEDS: FAMOTIDINE 20 MG TABLET PO SCH ×2 (10:02→22:01)
[2019-10-17] MEDS: DOCUSATE SODIUM 100 MG CAPSULE PO SCH ×2 (10:02→17:31)
[2019-10-17 10:20] LABS: A TYPE INFLUENZA AG NEGATIVE (NEGATIVE); B INFLUENZA AG NEGATIVE (NEGATIVE)
[2019-10-17] MEDS ORDERED: ALPRAZOLAM 0.25 MG TABLET PO ONE (10:30)
[2019-10-17] MEDS: PIPERACILLIN SODIUM/TAZOBACTAM 3.375 GM in NORMAL SALINE 100 ML IV SCH ×3 (13:32→23:50)
[2019-10-17] MEDS ORDERED: INFLUENZA QUAD (6MOS+) 2019-20 VAC 0.5 ML SYR IM ONE (13:39)
[2019-10-17 14:20] LABS: APPEARANCE,URINE CLEAR; BILIRUBIN,URINE NEGATIVE (NEGATIVE); COLOR,URINE YELLOW; GLUCOSE, URINE NEGATIVE (NEGATIVE); KETONES,URINE NEGATIVE (NEGATIVE); LEUKOCYTE ESTERASE,URINE TRACE (NEGATIVE); NITRITE,URINE NEGATIVE (NEGATIVE); PROTEIN,URINE 30 mg/dL (NEGATIVE); URINE SPECIFIC GRAVITY 1.011; UROBILINOGEN,URINE NEGATIVE mg/dL (<2.0)
[2019-10-17 14:43] LABS: URINE AMPHETAMINES SCREEN NEGATIVE; URINE BARBITURATES SCREEN NEGATIVE; URINE BENZODIAZEPINES SCREEN NEGATIVE; URINE COCAINE SCREEN NEGATIVE; URINE METHADONE SCREEN NEGATIVE; URINE PHENCYCLIDINE SCREEN NEGATIVE
[2019-10-17 14:49] LABS: URINE MARIJUANA (THC) SCREEN UNCONFIRMED POSITIVE
[2019-10-17] MEDS: ACETAMINOPHEN 325 MG TABLET PO PRN (17:34)
[2019-10-17] MEDS: KETOROLAC TROMETHAMINE INJ/PF 30 MG/1 ML SDV IV PRN (22:01)
[2019-10-17] MEDS: MELATONIN 5 MG TABLET PO PRN (22:01)
[2019-10-18] MEDS: ACETAMINOPHEN 325 MG TABLET PO PRN ×3 (03:35→17:39)
[2019-10-18] MEDS: KETOROLAC TROMETHAMINE INJ/PF 30 MG/1 ML SDV IV PRN ×3 (03:36→17:39)
[2019-10-18] MEDS: HEPARIN SOD (PORCINE) 5,000 UNIT/ML 1 ML VIAL SUBCUT SCH ×3 (05:24→21:27)
[2019-10-18 05:40] LABS: HEMATOCRIT 40.2 % (37.9-51.0); HEMOGLOBIN 14.3 g/dL (13.5-17.0); MEAN CORPUSCULAR HEMOGLOBIN 30.5 pg (27.0-33.4); MEAN CORPUSCULAR HGB CONC 35.6 g/dL (32.0-36.0); MEAN CORPUSCULAR VOLUME 86 fl (80-97); PLATELET COUNT 119 10^3/uL (150-450); RED BLOOD COUNT 4.69 10^6/uL (4.35-5.55); RED CELL DISTRIBUTION WIDTH 12.9 % (11.5-14.0); WHITE BLOOD COUNT 9.8 10^3/uL (4.0-10.5)
[2019-10-18 06:06] LABS: ANION GAP 11 (5-19); BLOOD UREA NITROGEN 11 mg/dL (7-20); CALCIUM 8.5 mg/dL (8.4-10.2); CARBON DIOXIDE 25 mmol/L (22-30); CHLORIDE 101 mmol/L (98-107); GLUCOSE 96 mg/dL (75-110); POTASSIUM 3.8 mmol/L (3.6-5.0)
[2019-10-18] MEDS: PIPERACILLIN SODIUM/TAZOBACTAM 3.375 GM in NORMAL SALINE 100 ML IV SCH ×3 (06:17→17:35)
[2019-10-18] MEDS: LEVALBUTEROL HCL NEB 1.25 MG/3 ML AMPUL NEB SCH ×3 (08:56→23:59)
[2019-10-18] MEDS: IPRATROPIUM BROMIDE 0.02% NEB 0.5 MG/2.5 ML AMPUL NEB SCH ×3 (08:56→23:59)
[2019-10-18] MEDS: ACETYLCYSTEINE 20% SOLN 800 MG/4 ML VIAL.NEB NEB SCH ×2 (08:56→20:28)
[2019-10-18] MEDS: DOCUSATE SODIUM 100 MG CAPSULE PO SCH ×2 (09:41→17:31)
[2019-10-18] MEDS: FAMOTIDINE INJ/PF 20 MG/2 ML SDV IV SCH ×2 (09:56→22:30)
--- NOTE | 2019-10-18 14:50 | PDOC PROGRESS REPORT ---
Subjective Progress Note for:: 10/18/19 Subjective:: This is a 29-year-old male who was admitted for right lower lobe pneumonia that failed outpatient antibiotic therapy. No acute event overnight. Upon encounter this morning, patient says that he feels better today. Will continue 1 more day of IV antibiotics and anticipate discharge in the next 24 hours. Reason For Visit: PNEUMONIA Physical Exam Vital Signs: Temp Pulse Resp BP Pulse Ox 98.1 F 84 17 117/65 98 10/18/19 11:15 10/18/19 11:15 10/18/19 11:15 10/18/19 11:15 10/18/19 11:15 Intake & Output 10/17/19 10/18/19 10/19/19 06:59 06:59 06:59 Intake Total 1300 770 660 Balance 1300 770 660 Weight 140 lb 4.482 oz 142 lb 13.753 oz General appearance: PRESENT: no acute distress, well-developed, well-nourished Head exam: PRESENT: atraumatic, normocephalic Eye exam: PRESENT: conjunctiva pink, EOMI, PERRLA. ABSENT: scleral icterus Ear exam: PRESENT: normal external ear exam Mouth exam: PRESENT: moist, tongue midline Neck exam: ABSENT: carotid bruit, JVD, lymphadenopathy, thyromegaly Respiratory exam: PRESENT: rhonchi. ABSENT: rales, wheezes Cardiovascular exam: PRESENT: RRR. ABSENT: diastolic murmur, rubs, systolic mu rmur Pulses: PRESENT: normal dorsalis pedis pul GI/Abdominal exam: PRESENT: normal bowel sounds, soft. ABSENT: distended, guarding, mass, organolmegaly, rebound, tenderness Rectal exam: PRESENT: deferred Extremities exam: PRESENT: full ROM. ABSENT: calf tenderness, clubbing, pedal edema Neurological exam: PRESENT: alert, awake, oriented to person, oriented to place, oriented to time, oriented to situation, CN II-XII grossly intact. ABSENT: motor sensory deficit Results Laboratory Results: 10/18/19 04:39 10/18/19 04:39 10/18/19 10/18/19 04:39 04:39 WBC 9.8 RBC 4.69 Hgb 14.3 Hct 40.2 MCV 86 MCH 30.5 MCHC 35.6 RDW 12.9 Plt Count 119 L Sodium 136.6 L Potassium 3.8 Chloride 101 Carbon Dioxide 25 Anion Gap 11 BUN 11 Creatinine 0.69 Est GFR ( Amer) > 60 Glucose 96 Calcium 8.5 Impressions: Chest X-Ray 10/16/19 23:17 IMPRESSION: Increasing right basilar airspace disease with new small right pleural effusion, suspicious for worsening pneumonia. copyright 2010 [employer]- All Rights Reserved Assessment and Plan - Diagnosis (1) Community acquired pneumonia of right lung Qualifiers: Lung location: unspecified part of lung Qualified Code(s): J18.9 - Pneumonia, unspecified organism Is this a current diagnosis for this admission?: Yes Plan: Continue IV antibiotics today. Continue breathing treatments. (2) Tobacco use disorder, severe, dependence Is this a current diagnosis for this admission?: Yes Plan: Counseled on cessation. - Plan Summary Summary: Patient is admitted to the medical floor where he will receive routine supportive and symptomatic cares. He will be treated with IV Levaquin initially using 750 mg daily. He will be provided an aggressive pulmonary toilet with nebulized Xopenex, Atrovent and Mucomyst. Smoking cessation is advised and counseled briefly at the bedside. A nicotine replacement patch is available for the patient's use, if desired. Patient will use morphine sulfate 2 to 4 mg IV every 2 hours on as-needed basis for control of his pleuritic chest pain. Patient will have available Ativan 1 mg IV every 4 hours as needed anxiety or restlessness. Patient will be given supplemental oxygen if required for maintenance of adequate O2 saturation. - Time Time Spent with patient: 25-34 minutes
[2019-10-18] MEDS: LEVALBUTEROL HCL NEB 0.63 MG/3 ML AMPUL NEB PRN (20:28)
[2019-10-18] MEDS: MELATONIN 5 MG TABLET PO PRN (22:31)
[2019-10-19] MEDS: PIPERACILLIN SODIUM/TAZOBACTAM 3.375 GM in NORMAL SALINE 100 ML IV SCH ×3 (01:00→11:39)
[2019-10-19 05:25] LABS: HEMATOCRIT 38.6 % (37.9-51.0); HEMOGLOBIN 13.6 g/dL (13.5-17.0); MEAN CORPUSCULAR HEMOGLOBIN 30.3 pg (27.0-33.4); MEAN CORPUSCULAR HGB CONC 35.4 g/dL (32.0-36.0); MEAN CORPUSCULAR VOLUME 86 fl (80-97); PLATELET COUNT 190 10^3/uL (150-450); RED CELL DISTRIBUTION WIDTH 12.9 % (11.5-14.0)
[2019-10-19 05:58] LABS: ANION GAP 9 (5-19); BLOOD UREA NITROGEN 9 mg/dL (7-20); CALCIUM 8.2 mg/dL (8.4-10.2); CARBON DIOXIDE 26 mmol/L (22-30); CHLORIDE 102 mmol/L (98-107); GLUCOSE 104 mg/dL (75-110); POTASSIUM 3.4 mmol/L (3.6-5.0)
[2019-10-19] MEDS: HEPARIN SOD (PORCINE) 5,000 UNIT/ML 1 ML VIAL SUBCUT SCH ×2 (06:26→13:34)
[2019-10-19] MEDS: ACETYLCYSTEINE 20% SOLN 800 MG/4 ML VIAL.NEB NEB SCH (08:48)
[2019-10-19] MEDS: IPRATROPIUM BROMIDE 0.02% NEB 0.5 MG/2.5 ML AMPUL NEB SCH (08:48)
[2019-10-19] MEDS: LEVALBUTEROL HCL NEB 1.25 MG/3 ML AMPUL NEB SCH (08:48)
--- NOTE | 2019-10-19 09:12 | RADIOLOGY REPORT (SQ) ---
EXAM DESCRIPTION: CHEST SINGLE VIEW COMPLETED DATE/TIME: 10/19/2019 8:05 am REASON FOR STUDY: reassess right lower lobe infiltrates COMPARISON: 10/16/2019 EXAM PARAMETERS: NUMBER OF VIEWS: One view. TECHNIQUE: Single frontal radiographic view of the chest acquired. RADIATION DOSE: NA LIMITATIONS: None. FINDINGS: LUNGS AND PLEURA: Persistent decreasing round areas of consolidation and linear parenchym al densities in the right lower lung. Small right pleural effusion has decreased. The left lung is clear. No pneumothorax. MEDIASTINUM AND HILAR STRUCTURES: No masses. Contour normal. HEART AND VASCULAR STRUCTURES: Heart normal in size. Normal vasculature. BONES: No acute findings. HARDWARE: None in the chest. OTHER: No other significant finding. IMPRESSION: 1. Interval improvement in the appearance of the right lower lung with decreasing pneum onic consolidation and small right pleural effusion. TECHNICAL DOCUMENTATION: JOB ID: [id number] [employer]- All Rights Reserved Reading location - IP/workstation name: [email or web address]
[2019-10-19] MEDS: FAMOTIDINE INJ/PF 20 MG/2 ML SDV IV SCH (09:53)
[2019-10-19] MEDS: DOCUSATE SODIUM 100 MG CAPSULE PO SCH (09:53)
[2019-10-19] MEDS ORDERED: POTASSIUM CHLORIDE 10 MEQ TABLET.ER PO ONE (10:30)
[2019-10-19 14:09] VITALS: BP 129/76
--- NOTE | 2019-10-19 18:10 | PDOC DISCHARGE SUMMARY ---
Impression - Admit/DC Date/PCP Admission Date/Primary Care Provider: 10/17/19 02:49 Discharge Date: 10/19/19 - Discharge Diagnosis (1) Community acquired pneumonia of right lung Is this a current diagnosis for this admission?: Yes (2) Tobacco use disorder, severe, dependence Is this a current diagnosis for this admission?: Yes - Additional Information Resuscitation Status: Full Code Discharge Diet: As Tolerated Discharge Activity: Activity As Tolerated, Balance Activity w/Rest Referrals: [facility] [Provider Group] - 10/27/19 3:00 pm (Appointment with Dr. Mahoney) Prescriptions: Levofloxacin [Levaquin 750 mg Tablet] 750 mg PO DAILY 5 Days #5 tablet Nicotine [Nicotine Patch] 1 each TD DAILY #30 patch.[email or web address] Home Medications: Levofloxacin [Levaquin 750 mg Tablet] 750 mg PO DAILY 5 Days #5 tablet 10/19/19 Nicotine [Nicotine Patch] 1 each TD DAILY #30 patch.dysq 10/19/19 History of Present Illiness History of Present Illness: Admitting hospitalist's H&P: MANDI HERNANDEZ is a 29 year old male who presented to the emergency room with a 7- day history of dyspnea. Patient admits dyspnea worsened by exertion accompanied by a nonproductive cough, subjective fever and chills and associated with severe sharp right pleuritic chest pain with all symptoms gradually worsening over the last 7 days. He was seen on 10/15/2019 and 10/16/2019 in the emergency room and treated for pneumonia with oral Levaquin, albuterol via hand-held nebulizer and oral naproxen for pain. He went home and took his medications and promptly vomited. He subsequently discontinued use of the medications and his symptoms have further worsened. His dyspnea is severe to the point where he cannot smoke cigarettes or marijuana due to worsening of his dyspnea. He denies other associated or accompanying signs and symptoms. He denies prior similar episodes. He has not identified any additional aggravating or ameliorating factors for his dyspnea. In the emergency room he was found to have a worsened appearance of his pneumonia via chest x-ray and was also noted to have a 15,000 white count. Patient was afebrile and the remainder of his laboratory evalu ation was unremarkable. Due to his failed outpatient therapy he was admitted to the hospital for further evaluation and treatment. Hospital Course Hospital Course: This is a 29-year-old male who was admitted for right lower lobe pneumonia. Patient was started on IV antibiotics, Mucomyst and breathing treatments. He did get significant improvement with above treatments. He was easily weaned off O2 and was able to move the hallways on room air without any difficulty or desaturation. Patient did not really fail levofloxacin outpatient as he said that he only took the first dose of levofloxacin but had vomiting later and had to go to the ER again due to increasing shortness of breath. His repeat chest x-ray did show significant improvement with IV antibiotics. He will be discharged on 5 more days of levofloxacin. He was also counseled about smoking cessation and was agreeable to using nicotine patches. He will be given close follow-up appo intment at the [facility]. Physical Exam Vital Signs: Temp Pulse Resp BP Pulse Ox 98.7 F 99 14 129/76 H 98 10/19/19 14:03 10/19/19 14:03 10/19/19 14:03 10/19/19 14:03 10/19/19 14:03 Intake & Output 10/18/19 10/19/19 10/20/19 06:59 06:59 06:59 Intake Total 770 2530 920 Balance 770 2530 920 Weight 142 lb 13.753 oz 147 lb 7.828 oz General appearance: PRESENT: no acute distress, well-developed, well-nourished Head exam: PRESENT: atraumatic, normocephalic Eye exam: PRESENT: conjunctiva pink, EOMI, PERRLA. ABSENT: scleral icterus Ear exam: PRESENT: normal external ear exam Mouth exam: PRESENT: moist, tongue midline Neck exam: ABSENT: carotid bruit, JVD, lymphadenopathy, thyromegaly Respiratory exam: PRESENT: rhonchi. ABSENT: rales, wheezes Cardiovascular exam: PRESENT: RRR. ABSENT: diastolic murmur, rubs, systolic murmur Pulses: PRESENT: normal dorsalis pedis pul GI/Abdominal exam: PRESENT: normal bowel sounds, soft. ABSENT: distended, guarding, mass, organolmegaly, rebound, tenderness Rectal exam: PRESENT: deferred Extremities exam: PRESENT: full ROM. ABSENT: calf tenderness, clubbing, pedal edema Neurological exam: PRESENT: alert, awake, oriented to person, oriented to place, oriented to time, oriented to situation, CN II-XII grossly intact. ABSENT: motor sensory deficit Results Laboratory Results: WBC 8.0 10^3/uL (4.0-10.5) 10/19/19 05:07 RBC 4.50 10^6/uL (4.35-5.55) 10/19/19 05:07 Hgb 13.6 g/dL (13.5-17.0) 10/19/19 05:07 Hct 38.6 % (37.9-51.0) 10/19/19 05:07 MCV 86 fl (80-97) 10/19/19 05:07 MCH 30.3 pg (27.0-33.4) 10/19/19 05:07 MCHC 35.4 g/dL (32.0-36.0) 10/19/19 05:07 RDW 12.9 % (11.5-14.0) 10/19/19 05:07 Plt Count 190 10^3/uL (150-450) 10/19/19 05:07 Lymph % (Auto) 8.8 % (13-45) L 10/16/19 23:20 [place] % (Auto) 5.9 % (3-13) 10/16/19 23:20 Eos % (Auto) 0.0 % (0-6) 10/16/19 23:20 Baso % (Auto) 0.2 % (0-2) 10/16/19 23:20 Absolute Neuts (auto) 12.8 10^3/uL (1.7-8.2) H 10/16/19 23:20 Absolute Lymphs (auto) 1.3 10^3/uL (0.5-4.7) 10/16/19 23:20 Absolute Monos (auto) 0.9 10^3/uL (0.1-1.4) 10/16/19 23:20 Absolute Eos (auto) 0.0 10^3/uL (0.0-0.6) 10/16/19 23:20 Absolute Basos (auto) 0.0 10^3/uL (0.0-0.2) 10/16/19 23:20 Seg Neutrophils % 85.1 % (42-78) H 10/16/19 23:20 Sodium 137.0 mmol/L (137-145) 10/19/19 05:07 Potassium 4.1 mmol/L (3.6-5.0) 10/19/19 13:22 Chloride 102 mmol/L (98-107) 10/19/19 05:07 Carbon Dioxide 26 mmol/L (22-30) 10/19/19 05:07 Anion Gap 9 (5-19) 10/19/19 05:07 BUN 9 mg/dL (7-20) 10/19/19 05:07 Creatinine 0.65 mg/dL (0.52-1.25) 10/19/19 05:07 Est GFR ( Amer) > 60 (>60) 10/19/19 05:07 Est GFR (MDRD) Non-Af > 60 (>60) 10/19/19 05:07 Glucose 104 mg/dL (75-110) 10/19/19 05:07 Calcium 8.2 mg/dL (8.4-10.2) L 10/19/19 05:07 Total Bilirubin 0.8 mg/dL (0.2-1.3) 10/16/19 23:20 Direct Bilirubin 0.3 mg/dL (0.0-0.4) 10/16/19 23:20 Neonat Total Bilirubin Not Reportable 10/16/19 23:20 Neonat Direct Bilirubin Not Reportable 10/16/19 23:20 Neonat Indirect Bili Not Reportable 10/16/19 23:20 AST 33 U/L (17-59) 10/16/19 23:20 ALT 17 U/L (<50) 10/16/19 23:20 Alkaline Phosphatase 70 U/L (38-126) 10/16/19 23:20 Total Protein 7.2 g/dL (6.3-8.2) 10/16/19 23:20 Albumin 4.1 g/dL (3.5-5.0) 10/16/19 23:20 Lipase 15.6 U/L (23-300) L 10/16/19 23:20 Urine Color YELLOW 10/17/19 13:38 Urine Appearance CLEAR 10/17/19 13:38 Urine pH 7.0 (5.0-9.0) 10/17/19 13:38 Ur Specific [place] 1.011 10/17/19 13:38 Urine Protein 30 mg/dL (NEGATIVE) H 10/17/19 13:38 Urine Glucose (UA) NEGATIVE mg/dL (NEGATIVE) 10/17/19 13:38 Urine Ketones NEGATIVE mg/dL (NEGATIVE) 10/17/19 13:38 Urine Blood NEGATIVE (NEGATIVE) 10/17/19 13:38 Urine Nitrite NEGATIVE (NEGATIVE) 10/17/19 13:38 Urine Bilirubin NEGATIVE (NEGATIVE) 10/17/19 13:38 Urine Urobilinogen NEGATIVE mg/dL (<2.0) 10/17/19 13:38 Ur Leukocyte Esterase TRACE (NEGATIVE) H 10/17/19 13:38 Urine WBC (Auto) 7 /HPF 10/17/19 13:38 Urine RBC (Auto) 2 /HPF 10/17/19 13:38 Urine Mucus (Auto) RARE /LPF 10/17/19 13:38 Urine Ascorbic Acid NEGATIVE (NEGATIVE) 10/17/19 13:38 Urine Opiates Screen UNCONFIRMED POSITIVE 10/17/19 13:38 Urine Methadone Screen NEGATIVE 10/17/19 13:38 Ur Barbiturates Screen NEGATIVE 10/17/19 13:38 Ur Phencyclidine Scrn NEGATIVE 10/17/19 13:38 Ur Amphetamines Screen NEGATIVE 10/17/19 13:38 U Benzodiazepines Scrn NEGATIVE 10/17/19 13:38 Urine Cocaine Screen NEGATIVE 10/17/19 13:38 U Marijuana (THC) Screen UNCONFIRMED POSITIVE 10/17/19 13:38 HIV 1&2 Antibody NEGATIVE (NEGATIVE) 10/16/19 23:20 Influenza A (Rapid) NEGATIVE (NEGATIVE) 10/17/19 09:58 Influenza B (Rapid) NEGATIVE (NEGATIVE) 10/17/19 09:58 Impressions: Chest X-Ray 10/16/19 23:17 IMPRESSION: Increasing right basilar airspace disease with new small right pleural effusion, suspicious for worsening pneumonia. copyright 2010 [employer]- All Rights Reserved Chest X-Ray 10/19/19 07:00 IMPRESSION: 1. Interval improvement in the appearance of the right lower lung with decreasing pneumonic consolidation and small right pleural effusion. Stroke Is this a Stroke Patient?: No Acute Heart Failure - Is this a Heart Failure Patient?: No
== END 2019-10-19 15:30 | disposition home or self-care (01) | DRG 195 ==
LOC: ER 22:38 → EH 10-17 02:49 → 3W 10-17 04:18
PROVIDERS: ADMIT Emergency Medicine; ATTEND Emergency Medicine
DX: J18.9 Pneumonia, unspecified organism (principal); F17.210 Nicotine dependence, cigarettes, uncomplicated; F12.10 Cannabis abuse, uncomplicated; Z23 Encounter for immunization
CPT/HCPCS: 36415; 71045; 71046; 80048; 80053; 80307; 81001; 83690; 84132; 85025; 85027; 86701; 87040; 87070; 87186; 87205; 87804; 90686; 94640; 96361; 96374; 99284; 99406; J1885; J1956; J2060; J2270; J2405; J2543; J2550; J3490; J7030; J7050; J7614; S0028